=== PATIENT | female | born 1980 | race Caucasian/White ===

== ENCOUNTER 2017-03-15 13:17 | Inpatient (IN) | payer MEDICAID ==
[~2017-03-15] VITALS: Ht 162.6 cm; Wt 70.2 kg
[2017-03-15 13:35] VITALS: Ht 162.6 cm; Wt 70.2 kg
[2017-03-15 13:36] VITALS: BP 107/56; PULSE 82; RESP 18
[2017-03-15] MEDS ORDERED: PNV11TAB PO (13:39)
[2017-03-15 14:42] LABS: ADD UMIC YES; UR AMORPHOUS CRYSTAL MODERATE /HPF (NONE SEEN); UR ASCORBIC ACID NEGATIVE (NEGATIVE); UR BACTERIA FEW /HPF (NONE SEEN); UR BILIRUBIN (Dip) NEGATIVE (NEGATIVE); UR BLOOD (Dip) 2+ mg/dL (NEGATIVE); UR CLARITY CLOUDY (CLEAR); UR COLOR YELLOW (YELLOW); UR GLUCOSE (Dip) NEGATIVE (NEGATIVE); UR KETONES (Dip) NEGATIVE (NEGATIVE); UR LEUKOCYTE ESTERASE (Dip) 3+ Leu/ul (NEGATIVE); UR NITRITE (Dip) NEGATIVE (NEGATIVE); UR RBC 5 /HPF (0-5); UR SQUAMOUS EPITHELIAL CELL MODERATE /HPF (FEW); UR TOTAL PROTEIN (Dip) NEGATIVE (NEGATIVE); UR UROBILINOGEN (Dip) NEGATIVE (NEGATIVE)
--- NOTE | 2017-03-15 15:00 | RADRPT ---
PROCEDURE: US OB biophysical profile. CLINICAL INDICATION: decreased movements, vaginal bleeding TECHNIQUE: Multiple sonographic images of the pelvis were obtained. The images were reviewed on a PACS workstation. COMPARISON: No prior studies are available for comparison. FINDINGS: There is a single viable intrauterine gestation. Cardiac activity is present with 134 beats per min [place]. There is a vertex presentation. The placenta is posterior. There is no evidence of placental abruption. MVP = 4.4 cm. Biophysical profile: movement 2/2 tone 2/2. breathing 2/2 ELVIN 2/2 Total 11/14 RPTAT: AA . IMPRESSION: Normal biophysical profile. . .Adebyao Alvarado MD, Date Time Electronically viewed and signed by .Adebayo Alvarado MD, MD on 03/15/2017 14:59 .S/
--- NOTE | 2017-03-15 15:21 | RADRPT ---
PROCEDURE: Limited obstetric ultrasound CLINICAL INDICATION: Pain TECHNIQUE: Multiple transverse and longitudinal grayscale images of the pelvis were obtained green svaginally.. COMPARISON: same day FINDINGS: The cervix is closed with a length of 2.3 cm. RPTAT: AA IMPRESSION: Cervix length measures 2.3 cm. .Adebayo Alvarado MD, MD Date Time Electronically viewed and signed by .Adebayo Alvarado MD, on 03/15/2017 15:21 .S/
--- NOTE | 2017-03-15 16:39 | TRIAGE ---
OB Triage Datetime Report Generated by CPN: 03/15/2017 16:39 Datetime: 03/15/2017 16:13 Labor Evaluation Frequency: 0 Monitor Mode: External Resting Tone [place]: Relaxed Heart Rate FHR Baseline Rate: 145 Monitor Mode: External US Variability: Moderate 6-25 bpm Accelerations: 10X10 Decelerations: None Category: Category I Pain Assessment Pain Scale: 0 Pain Presence: None/Denies Pain Type: N/A Pain Goal: 3 Pain Relief Measures: Comfort Measures Datetime: 03/15/2017 16:06 Stage of : OB Triage Vaginal Exam Dilatation (cms): 0.0 Exam By: DR FOROOHAR Vaginal Bleeding: Scant Cervix, Consistency: Soft Cervix, Position: Posterior Datetime: 03/15/2017 15:56 Stage of : OB Triage Datetime: 03/15/2017 15:41 Labor Evaluation Frequency: 0 Monitor Mode: External Pattern: Normal: <= 5 Contractions in 10 Minutes Resting Tone [place]: Relaxed Heart Rate FHR Baseline Rate: 145 Monitor Mode: External US Variability: Moderate 6-25 bpm Accelerations: 10X10 Decelerations: None Category: Category I Pain Assessment Pain Scale: 0 Pain Presence: None/Denies Pain Type: N/A Pain Goal: 3 Pain Relief Measures: Comfort Measures Datetime: 03/15/2017 13:59 Nitrazine: Positive Datetime: 03/15/2017 13:47 Stage of : OB Triage Datetime: 03/15/2017 13:43 Stage of : OB Triage Datetime: 03/15/2017 13:24 Stage of : OB Triage Assessment Type: Triage EGA: 24.1 Time Provider Notified: 03/15/2017 13:43 Provider Notified: ESHAGHIAN Maternal Assessment Level of Consciousness: Fully Conscious DTR's/Clonus: DTRs 2+; No Clonus Headache: Denies Blurred Vision: No Respiratory Effort: Unlabored; Regular Rhythm; Equal Expansion Breath Sounds, Left: Clear and Equal Breath Sounds, Right: Clear and Equal Nausea/Vomiting: Denies RUQ Epigastric Pain: Denies Facial Edema: None Temperature Route: Axillary Fall Risk Assessment History of Falling: (0) No Secondary Diagnosis: (0) No Ambulatory Aid: (0) Bedrest/Nurse Assist IV Therapy: (0) No Gait: (0) Normal/Bedrest/Immobile Mental Status: (0) Oriented to Own Ability Fall Score: 0 Fall Risk Score Definition: No Risk: No action required Labor Evaluation Frequency: 0 Monitor Mode: External Resting Tone [place]: Relaxed Heart Rate FHR Baseline Rate: 135 Monitor Mode: External US Decelerations: None Pain Assessment Pain Scale: 0 Pain Presence: None/Denies Pain Goal: 3 Pain Relief Measures: Comfort Measures Datetime: 03/15/2017 13:23 Time of Arrival: 03/15/2017 12:50 Arrived By: Ambulatory Chief Complaint: C/O SPOTTING, LEAKING SINCE YESTERDAY, DENIES UC'S Movement: Present Contractions: Denies/Absent Rupture of Membranes: Unsure Vaginal Bleeding: Scant Vaginal Discharge: Present Recent Sexual Intercouse: Denies Time Provider Notified: 03/15/2017 13:43 Provider Notified: NICOLE Initial Plan: MONITOR, BPP/ELVIN, ROM PLUS, U//A, NITRAZINE, CL
--- NOTE | 2017-03-15 16:45 | HP ---
Date/Time of Note Date/Time of Note DATE: 03/15/17 TIME: 16:18 OB - History Hx of Present Free Text/Dictation March 15, 2017 OB history and physical and OB triage consult This patient is a 37 years old 3 para 2 living 2 with both deliveries spontaneous ,vaginal. her estimated date of confinement is July 04, 2017,which makes her 24 weeks and 1 day today. She came to triage and was admitted due to suspicion of a rupture of membranes. She says she has been spotting since yesterday as well as the leakage of fluid vaginally. On examination she is a well-developed well-nourished patient about 25 weeks; her abdomen is soft heart tone is present. Very few contractions : 3 Para: 2 Care: Good Care Abnormal Ultrasound Findings: The ultrasound report is single viable intrauterine gestation with cardiac activity 134 bpm, in vertex presentation placenta posterior, no evidence of a placental abruption MPV equals 4.4 cm biophysical profile 11/14 her cervical length is reported 2.3 cm Other Concerns: .. ROM plus test was negative however Nitrazine is positive on urine exam she has 3+ leukocyte 2+ blood Laboratory Tests Test 03/15/17 13:30 03/15/17 14:00 Urine Color YELLOW Urine Clarity CLOUDY Urine pH 7.0 Urine Specific [place] 1.010 Urine Ketones NEGATIVEmg/dL Urine Nitrite NEGATIVEmg/dL Urine Bilirubin NEGATIVEmg/dL Urine Urobilinogen NEGATIVEmg/dL Urine Leukocyte Esterase 3+Mari/ul Urine Microscopic RBC 5/HPF Urine Microscopic WBC 10/HPF Urine Squamous Epithelial Cells MODERATE/HPF Urine Amorphous Crystals MODERATE/HPF Urine Bacteria FEW/HPF Urine Hemoglobin 2+mg/dL Urine Glucose NEGATIVEmg/dL Urine Total Protein NEGATIVEmg/dl Membranes Rupture NEGATIVE Current Medications Medications (Trade) Dose Ordered Sig/Sil Route PRN Reason Start Time Stop Time Status Last Admin Dose Admin Lactated Ringer's (Lr) 1,000 ml @ 125 mls/hr Q8H IV 03/15/17 16:14 UNV Past Family/Social History * Past Medical, Surgical, Family and Obstetric Histories reviewed from chart. Plan: With these finding we will keep the patient in the hospital with IV hydration ,Will start antibiotic and repeat ELVIN in the morning. OB Admission Exam Vital Signs Vital Signs Vital Signs Date Time Temp Pulse Resp B/P Pulse Ox O2 Delivery O2 Flow Rate FiO2 12/7/17 13:36 98.6 82 18 107/56 Physical Exam HEENT: WNL Heart: Rhythm Normal Lungs: Clear Abdomen: WNL Extremities: Normal Reflexes: Normal Cervical Dilatation: Fingertip Effacement: 50% Station: +2 Membranes: Intact Heart Rate: 140's Accelerations: Accelerations Present Varibility: Moderate Contractions on Admission: >10 Minutes Apart Intensity: Mild OB Assessment/Plan Reason for admission: IUP - Other Assessment: Nitrazine test was positive but ROM test was negative AMMY LEBLANC MD Mar 15, 2017 16:31
[2017-03-15] MEDS: LACTATED RINGER'S 1,000 ML IV SCH (18:26)
[2017-03-15 19:35] LABS: BASOPHILS % 0.3 % (0.0-2.0); EOSINOPHILS # 0.1 10^3/ul (0.0-0.5); EOSINOPHILS % 0.9 % (0.0-7.0); HEMATOCRIT 38.3 % (37.0-47.0); LYMPHOCYTES # 1.6 10^3/ul (0.8-2.9); LYMPHOCYTES % 24.4 % (15.0-51.0); MEAN CORPUSCULAR HEMOGLOBIN 29.7 pg (29.0-33.0); MEAN CORPUSCULAR HGB CONC 33.9 g/dl (32.0-37.0); MEAN CORPUSCULAR VOLUME 87.4 fl (82.0-101.0); MEAN PLATELET VOLUME 9.8 fl (7.4-10.4); MONOCYTE # 0.4 10^3/ul (0.3-0.9); MONOCYTES % 5.4 % (0.0-11.0); NEUTROPHIL # 4.6 10^3/ul (1.6-7.5); NEUTROPHILS % 68.7 % (39.0-77.0); PLATELET COUNT 237 10^3/UL (140-415); RED BLOOD COUNT 4.38 10^6/ul (4.20-5.40); RED CELL DISTRIBUTION WIDTH 14.2 % (11.5-14.5); WHITE BLOOD COUNT 6.7 10^3/ul (4.8-10.8)
[2017-03-16] MEDS: LACTATED RINGER'S 1,000 ML IV SCH ×3 (01:05→20:20)
[2017-03-16] MEDS ORDERED: MAGNESIUM SULFATE 4 GM/100 ML 100 ML IVPB ONE (09:00)
--- NOTE | 2017-03-16 09:06 | QN ---
Documentation Comment patient is comfortable ,No VB at this time No CTXs CXL 2.3 cm spotting NST reassuring for GA [place] No CTX Peliv No blood at perinium --->Neonatolgoy Consult --->perinatalogy comnsult --->Mg --->steroids JAIME VASQUES M.D. Mar 16, 2017 09:06
[2017-03-16] MEDS: BETAMET NA PHOS/AC(6 MG/ML) 5ML INJ IM SCH (09:27)
[2017-03-16] MEDS ORDERED: CEFAZOLIN 2 GM/50 ML (PMX) 50 ML IV SCH (09:30)
[2017-03-16] MEDS: MAGNESIUM SULFATE 20 GM/500 ML 500 ML IV SCH ×2 (09:47→19:41)
--- NOTE | 2017-03-16 09:59 | RADRPT ---
PROCEDURE: Obstetrical ultrasound. CLINICAL INDICATION: , evaluation. Pelvic pain. Vaginal bleeding. TECHNIQUE: Transabdominal sonographic images of the uterus obtained after first trimester , greater than 14 weeks gestation. Single intrauterine gestation present. COMPARISON: US 03/15/2017 FINDINGS: Single intrauterine gestation. There is a cephalic presentation. Measurements were made in order to determine age. The results are as follows: BPD = 23 weeks 0 day(s) HC = 22 weeks 6 day(s) AC = 25 weeks 4 day(s) FL = 23 weeks 3 day(s) ELVIN = not measured Heart rate = 138 beats per minute The placenta is posterior. The distance between the lower margin of the placenta and the cervix is n ot clearly visualized. Ovaries are not visualized. IMPRESSION: Single intrauterine gestation of approximately 23 weeks 5 days by ultrasound criteria. [place] estimated weight = 689 g; 44 percentile for gestational age of 24 weeks 2 days. The distance between the lower margin of the placenta and the cervix is not clearly visualized. Low- lying placenta versus placenta previa are not clearly excluded. Follow-up examination recommended. RPTAT: AADD .Ciro Correa MD, Date Time Electronically viewed and signed by .Ciro Correa MD, MD on 03/16/2017 09:59 .B/
--- NOTE | 2017-03-16 13:29 | CONS ---
Date/Time of Note Date/Time of Note DATE: 03/16/17 TIME: 13:19 Consultation Date/Type/Reason Admit Date/Time Mar 15, 2017 at 16:10 Date of Consultation: Mar 16, 2017 Type of Consultation: Neonatology consultation Reason for Consultation labor with 24.3 weeks with an estimated weight of 689 g on ultrasound Hx of Present Illness I was asked to talk with his mother who is 24.3 weeks, in labor. She was admitted on 03/15 and was started on magnesium sulfate and received first dose of betamethasone on 03/16 at 0930 hours. Second dose will be given on 03/17 at 0930 hours. Mother's contractions of slowing down for the RN. Her rupture of membranes test was negative. ultrasound showed estimated weight of 689 g within an estimated gestational age is 24.2 weeks. I discussed with mother about the infant being extremely premature with the very low birthweight. I discussed about incidence of respiratory distress syndrome, and treatment with the oxygen therapy and ventilatory therapy and sometimes requirement for long-term oxygen administration, risk for chronic lung disease, apnea prematurity, treatment with caffeine, and the IMV if needed. Also discussed about Curosurf administration if has respiratory distress syndrome. Discussed about high risk of infection and infant to be on antibiotics at soon after admission and subsequently to be monitored for sepsis. Discussed about possible hypotension and treatment with pressors, high risk of intraventricular hemorrhage and monitoring with the head ultrasounds, high risk of jaundice and treatment with phototherapy, risk of multiple blood transfusions, and other blood products. Discussed about to be n.p.o. on admission to be started on feedings when clinically stable. Discussed about the benefits of breastmilk and encourage mother to pump breastmilk if is delivered. Discussed about risk for NEC and feeding tolerance. Just about a survival rate of 60-70% and a risk for chronic lung disease, possible oxygen therapy on discharge, and a high rate of 4 neurodevelopmental delay in extreme prematurity. I also discussed about resuscitation in the delivery room and provided the mother with alternatives to do complete resuscitation if the is active and if chosen by the mother to provide only comfort care if the infant is not responsive. All options for resuscitation were provided but mother would like to think about it. Other was extremely emotional and was crying and her primary question was white as the baby need to come out at the present time. Reassured her that the baby will be delivered only when needed by the processing mgr and to discuss that with her OB doctor. Discussion was concluded after all mother's questions were answered. Social History Smoking Status: Never smoker Exam/Review of Systems Vital Signs Vitals Vital Signs Date Time Temp Pulse Resp B/P Pulse Ox O2 Delivery O2 Flow Rate FiO2 03/15/17 13:36 98.6 82 18 107/56 Intake and Output 03/15/17 03/15/17 03/16/17 14:59 22:59 06:59 Intake Total 760 ml 1000 ml Output Total 850 ml 800 ml Balance -90 ml 200 ml Results Result Diagram: 03/15/171913 Results 24 hrs Laboratory Tests Test 03/15/17 13:30 03/15/17 14:00 03/15/17 19:14 Urine Color YELLOW Urine Clarity CLOUDY A Urine pH 7.0 Urine Specific [place] 1.010 Urine Ketones NEGATIVE Urine Nitrite NEGATIVE Urine Bilirubin NEGATIVE Urine Urobilinogen NEGATIVE Urine Leukocyte Esterase 3+ H Urine Microscopic RBC 5 Urine Microscopic WBC 10 H Urine Squamous Epithelial Cells MODERATE Urine Amorphous Crystals MODERATE Urine Bacteria FEW A Urine Hemoglobin 2+ H Urine Glucose NEGATIVE Urine Total Protein NEGATIVE Membranes Rupture NEGATIVE White Blood Count 6.7 Red Blood Count 4.38 Hemoglobin 13.0 Hematocrit 38.3 Mean Corpuscular Volume 87.4 Mean Corpuscular Hemoglobin 29.7 Mean Corpuscular Hemoglobin Concent 33.9 Red Cell Distribution Width 14.2 Platelet Count 237 Mean Platelet Volume 9.8 Neutrophils % 68.7 Lymphocytes % 24.4 Monocytes % 5.4 Eosinophils % 0.9 Basophils % 0.3 Nucleated Red Blood Cells % 0.0 Neutrophils # 4.6 Lymphocytes # 1.6 Monocytes # 0.4 Eosinophils # 0.1 Basophils # 0.0 Nucleated Red Blood Cells # 0.0 Medications Medications Current Medications Lactated Ringer's 1,000 ml @ 125 mls/hr Q8H IV Last administered on 03/16/17 08:53; Admin Dose 125 MLS/HR; Start 03/15/17 at 16:14 Magnesium Sulfate (Magnesium Sulfate 20 Gm/500 ml) 500 ml @ 50 mls/hr Q10H IV Last administered on 03/16/17 09:47; Admin Dose 50 MLS/HR; Start 03/16/17 at 09 :30 Betamethasone Acet/Betameth SodPhos ([place]elestone Soluspan) 12 mg Q24H IM Last administered on 03/16/17 09:27; Admin Dose 12 MG; Start 03/16/17 at 09:00; Stop 03/17/17 at 09:01 ZI GARZA MD Mar 16, 2017 13:29
--- NOTE | 2017-03-16 14:06 | PERINOTE ---
Date/Time of Note Date/Time of Note DATE: 03/16/17 TIME: 14:00 Assessment/Recommendations Other Assessments Vaginal bleeding possibly due to a low-lying placenta vs uterine contractions Reported short cervix on an inadequate exam Low likelihood of ruptured membranes Recommendations: Would repeat the vaginal ultrasound for cervical length and placental location. If the cervical length is more than 2 cm and the bleeding abates, could consider D/C home with close follow up. OB Subjective Free Text/Dictaton Patient admitted for vaginal bleeding and loss of a small amount of fluid. Patient denies contractions and reports movement. HD# 2 IUP @ 24W2D Complaints/Overnight events ROM+ test was negative for ruptured membranes. Patient denies current bleeding or leaking. Current Medications Current Medications Lactated Ringer's 1,000 ml @ 125 mls/hr Q8H IV Last administered on 03/16/17 08:53; Admin Dose 125 MLS/HR; Start 03/15/17 at 16:14 Magnesium Sulfate (Magnesium Sulfate 20 Gm/500 ml) 500 ml @ 50 mls/hr Q10H IV Last administered on 03/16/17 09:47; Admin Dose 50 MLS/HR; Start 03/16/17 at 09 :30 Betamethasone Acet/Betameth SodPhos (Celestone Soluspan) 12 mg Q24H IM Last administered on 03/16/17 09:27; Admin Dose 12 MG; Start 03/16/17 at 09:00; Stop 03/17/17 at 09:01 Past Medical History Medical History: no pertinent history Surgical History: no surgical history CONTAINER MAKER History: no pertinent CONTAINER MAKER history Para: 2 : 3 LMP (Females 10-50): OB Admission Exam Physical Exam Vitals: Vital Signs Date Time Temp Pulse Resp B/P Pulse Ox O2 Delivery O2 Flow Rate FiO2 03/15/17 13:36 98.6 82 18 107/56 Heart: Rhythm Normal Lungs: Clear Abdomen: WNL Heart Rate: 130's Accelerations: Accelerations Present Decelerations: No Decelerations Varibility: Moderate Contractions on Admission: None Last 72 hours Lab Results CBC & BMP 03/15/17 19:14 Ultrasound Results ELVIN Single deepest pocket of study on 03/16 was 3.5cm, in normal range Cervical Length No acceptable images to evaluate cervical length or placental location on study of 03/15 Copies To: CC: ADELAIDA RIVERA MD, MARIE H MD Mar 16, 2017 14:06
--- NOTE | 2017-03-16 14:06 | RADRPT ---
PROCEDURE: Limited obstetric ultrasound CLINICAL INDICATION: Pain TECHNIQUE: Multiple transverse and longitudinal grayscale images of the pelvis were obtained green sabdominally and transvaginally.. COMPARISON: 03/16/17 FINDINGS: The cervix is closed with a length of 3.2 cm. There is a single viable intrauterine gestation. Cardiac activity is present with 139 beats per min [place]. There is a breech presentation. The placenta is posterior fundal. There is no evidence for an abruption or placenta previa. RPTAT: AA IMPRESSION: Cervix length measures 3.2 cm. .Adebayo Alvarado MD, Date Time Electronically viewed and signed by .Adebayo Alvarado MD, on 03/16/2017 14:06 .S/
[2017-03-17] MEDS: LACTATED RINGER'S 1,000 ML IV SCH ×2 (00:14→08:00)
[2017-03-17] MEDS: MAGNESIUM SULFATE 20 GM/500 ML 500 ML IV SCH (05:30)
[2017-03-17] MEDS: BETAMET NA PHOS/AC(6 MG/ML) 5ML INJ IM SCH (09:01)
--- NOTE | 2017-03-17 12:35 | QN ---
Documentation Comment patient is comfortable ,No VB at this time No CTXs NST reassuring for GA [place] No CTX Peliv No blood at perinium --->Repeat CXL today,If no change she can be discharged with precautions --->follow up with perinatalogy and PMD JAIME VASQUES M.D. Mar 17, 2017 12:35
--- NOTE | 2017-03-17 14:36 | RADRPT ---
PROCEDURE: US OB. CLINICAL INDICATION: labor, vaginal bleeding TECHNIQUE: Transabdominal OB views of the pelvis are available for review. COMPARISON: March 16, 2017 FINDINGS: Within the uterus, there is a single, live intrauterine . The presentation is transverse, head to the maternal right. The heart rate is 144 beats per minute. The cervical length is 3.3 cm. The amniotic fluid measures 3.7 cm in the largest pocket. The placenta is noted to be fundal and grade 2. IMPRESSION: 1. Single live intrauterine in transverse positioning. The cervical length is 3.3 cm. The amniotic fluid index is 3.7 cm in the largest pocket. Overall, no interval change. 2. The placenta is fundal and grade 2. There are no findings of abruption or previa. RPTAT: QQ .Merry Sarabia MD, MD Date Time Electronically viewed and signed by .Merry Sarabia MD, on 03/17/2017 14:35 .F/
== END 2017-03-17 15:18 | disposition home or self-care (01) | DRG 780 ==
LOC: L-D 13:17 → OBT 13:17 → L-D 16:10 → PP1 03-16 17:54 → L-D 03-16 17:56 → PP1 03-16 19:56
PROVIDERS: ADMIT Obstetrics & Gynecology; ATTEND Obstetrics & Gynecology
DX: O47.02 False labor before 37 completed weeks of gestation, second trimester (principal); O09.522 Supervision of elderly multigravida, second trimester; Z3A.24 24 weeks gestation of pregnancy
CPT/HCPCS: 76815; 76817; 76818; 81001; 83735; 84112; 85025; 87086; G0463; J0702; J3475; J7120

== ENCOUNTER 2017-07-01 02:00 | Inpatient (IN) | END 2017-07-02 17:18 | disposition home or self-care (01) | DRG 775 ==

== ENCOUNTER 2018-11-03 22:20 | Emergency (ER) | payer MEDICAID ==
[~2018-11-03] VITALS: Ht 152.4 cm; Wt 70.5 kg
[~2018-11-03 22:20] MED LIST: AMOX1TAB10 PO; HYDR-4011 PO; IBUP-1542 PO; NPH10OT RIGHT EAR; PREN-19 PO
[2018-11-03 22:24] VITALS: Ht 152.4 cm; Wt 70.5 kg
--- NOTE | 2018-11-03 23:28 | ERD ---
ER Documentation Chief Complaint Chief Complaint right earache/right side of face x 3 days HPI 38-year-old female presents with complaint of right ear pain radiating to the side of her face for the past 3 days. States that she is been having yellowish discharge coming from her ear canal as well. States that she has been taking Motrin for the pain. States pain is currently 8 out of 10. She drove her. Patient denies any fevers, chills, headaches, hearing difficulty, vertigo, tinnitus. ROS All systems reviewed and are negative except as per history of present illness. Medications Home Meds Active Scripts Hydrocodone/Acetaminophen ([place] 5-325 Tablet) 1 Each Tablet, 1 TAB PO Q6H PRN for PAIN, #10 TAB Prov:NICOLE PEREZ 11/03/18 Ibuprofen* (Motrin*) 600 Mg Tab, 600 MG PO Q6, #30 TAB Prov:NICOLE PEREZ 11/03/18 Amoxicillin/Potassium Clav (Amox-Clav 875-125 mg Tablet) 875-125 mg Tab, 1 TAB PO BID for 10 Days, #20 TAB Prov:NICOLE PEREZ 11/03/18 Neomycin/Polymyxin/Hydrocort* (Cortisporin* Otic) 10 Ml Susp, 4 DROP RIGHT EAR QID for 7 Days, EA Prov:NICOLE PEREZ 11/03/18 Reported Medications Vit #76/Iron,Carb/FA (Prenatabs Rx Tablet) 1 Each Tablet, 1 EACH PO D AILY, TAB 07/01/17 Allergies Allergies: Coded Allergies: No Known Allergy (Unverified , 07/01/17) PMhx/Soc Medical and Surgical Hx: pt denies Medical Hx, pt denies Surgical Hx Hx Alcohol Use: No Hx Substance Use: No Hx Tobacco Use: No Smoking Status: Never smoker FmHx Family History: No diabetes, No coronary disease, No other Physical Exam Vitals Vital Signs Date Temp Pulse Resp B/P (MAP) Pulse Ox O2 O2 Flow FiO2 Time Delivery Rate 11/03/18 99.2 85 18 118/65 98 22:24 (82) Physical Exam Const: No acute distress Head: Atraumatic Eyes: Normal Conjunctiva ENT: Normal External Ears, Nose and Mouth. Right tragus is tender to pa lpation. TMs are nonedematous or bulging bilaterally. Ear canals are patent with no discharge bilaterally. Mastoids are none erythematous, edematous, tender to palpation bilaterally. Neck: Full range of motion. No meningismus. Resp: Clear to auscultation bilaterally Cardio: Regular rate and rhythm, no murmurs Abd: Soft, non tender, non distended. Normal bowel sounds Skin: No petechiae or rashes Back: No midline or flank tenderness Ext: No cyanosis, or edema Neur: Awake and alert Psych: Normal Mood and Affect Results 24 hrs Laboratory Tests Test 11/03/18 23:22 POC Beta HCG, Qualitative NEGATIVE Procedures/MDM MDM: Patient's presentation is consistent with possible otitis externa given tragal tenderness and patient's complaint of discharge coming from the ear. To cover for possible otitis media patient will be placed on Augmentin as well as Cortisporin for otitis externa. Patient was given ibuprofen and [place] for alberto kthrough pain. I have low suspicion for mastoiditis due to lack of erythema, edema, or ttp over mastoid area. I have low suspicion for intercranial abscess due to lack of [place] or focal neurological findings. I have low suspicion of TM rupture or trauma based on lack of hearing loss, vertigo, and PE findings. Most likely diagnosis is acute otitis media. Based on these findings I do not feel that additional labs or imaging is necessary. Pa At this time, patient is stable for discharge and outpatient management. I have instructed the patient to follow-up with his/her primary care physician in 1-2 days. I have discussed with the patient the possibility of needing to see a specialist for further workup and imaging studies if symptoms persist. I have instructed the patient to promptly return to the ER for any new or worsening symptoms including but not limited to increased pain, fever, nausea, vomiting, weakness or LOC. The patient and/or family expressed understanding of and agreement with this plan. All questions were answered. Home care instructions were provided. Communication with patient both during the exam and instructions for discharge were performed with using a quality inspector . Patient gave verbal confirmation to the practitioner, through the quality inspector, that they understood everything that was being said to them. DISCLAIMER: Inadvertent spelling and grammatical errors are likely due to EHR/dictation software use and do not reflect on the overall quality of patient care. Also, please note that the electronic time recorded on this note does not necessarily reflect the actual time of the patient encounter. Departure Diagnosis: Primary Impression: Right ear pain Condition: Stable Patient Instructions: Otitis Media, Abx Tx (Adult), External Ear Infection (Adult) Referrals: [facility] YOU HAVE RECEIVED A MEDICAL SCREENING EXAM AND THE RESULTS INDICATE THAT YOU DO NOT HAVE A CONDITION THAT REQUIRES URGENT TREATMENT IN THE EMERGENCY DEPARTMENT. FURTHER EVALUATION AND TREATMENT OF YOUR CONDITION CAN WAIT UNTIL YOU ARE SEEN IN YOUR DOCTORS OFFICE WITHIN THE NEXT 1-2 DAYS. IT IS YOUR RESPONSIBILITY TO MAKE AN APPOINTMENT FOR FOLOW-UP CARE. IF YOU HAVE A PRIMARY DOCTOR --you should call your primary doctor and schedule an appointment IF YOU DO NOT HAVE A PRIMARY DOCTOR YOU CAN CALL OUR PHYSICIAN REFERRAL HOTLINE AT IF YOU CAN NOT AFFORD TO SEE A PHYSICIAN YOU CAN CHOSE FROM THE FOLLOWING [facility] [address] [facility] [address] [facility] [address] [facility] [address] [facility] [address] [facility] [address] Additional Instructions: FOLLOW UP WITH YOUR PRIMARY CARE PHYSICIAN TOMORROW.Return to this facility if you are not improving as expected. NICOLE PEREZ Nov 03, 2018 23:28
[2018-11-03 23:54] VITALS: BP 122/59; PULSE 89; RESP 18
== END 2018-11-03 23:55 | disposition home or self-care (01) ==
LOC: FTE 22:20
DX: H92.01 Otalgia, right ear (principal)
CPT/HCPCS: 81025; Z7502; 99283